=== PATIENT | female | born 1975 | race Caucasian/White ===

== ENCOUNTER → 2020-05-01 | Emergency (ER) | payer OTHER, MEDICAID ==
[~2020-05-01] VITALS: Ht 152.4 cm; Wt 70.3 kg
[~2020-05-01] MED LIST: LIDOcaine 1% W/epiNEPHrine 1:200,000 10ml vial IJ ONE; acetaminophen 325mg tablet PO ONE; iohexol 300mg/ml 100ml inj. ONE; morphine 4 MG/ML inj SYRINge IV ONE; ondansetron/PF 4mg/2ml inj IV ONE
--- NOTE | 2020-05-01 15:56 | NUR ---
Delay to CT, unable to get IV access
[2020-05-01 16:04] LABS: BASOPHILS # (AUTO) 0.1 X10'3 (0-0.2); BASOPHILS % (AUTO) 0.4 % (0-1); EOSINOPHILS # (AUTO) 0.1 X10'3 (0-0.9); EOSINOPHILS % (AUTO) 0.4 % (0-6); HEMATOCRIT 41.9 % (35.0-45.0); HEMOGLOBIN 14.4 g/dl (12.0-16.0); LYMPHOCYTES # (AUTO) 0.9 X10'3 (1.1-4.8); LYMPHOCYTES % (AUTO) 4.9 % (21-51); MEAN CORPUSCULAR HEMOGLOBIN 30.4 PG (27.0-31.0); MEAN CORPUSCULAR HGB CONC 34.2 g/dL (33.0-36.5); MEAN CORPUSCULAR VOLUME 88.9 FL (78-98); MEAN PLATELET VOLUME 8.9 FL (7.4-10.4); MONOCYTES # (AUTO) 0.8 X10'3 (0-0.9); MONOCYTES % (AUTO) 4.1 % (2-12); NEUTROPHILS # (AUTO) 16.6 X10'3 (1.8-7.7); NEUTROPHILS % (AUTO) 90.2 % (42-75); PLATELET COUNT 278 X10'3 (140-440); RED BLOOD COUNT 4.72 X10'6 (4.20-5.60); RED CELL DISTRIBUTION WIDTH 12.5 % (11.5-14.5); WHITE BLOOD COUNT 18.4 X10'3 (4.5-11.0)
[2020-05-01 16:19] LABS: ALANINE AMINOTRANSFERASE 27 U/L (12-78); ALBUMIN 4.2 G/DL (3.4-5.0); ALBUMIN/GLOBULIN RATIO 1.1 (1.1-1.5); ALKALINE PHOSPHATASE 72 IU/L (46-116); ANION GAP 9 (8-16); ASPARTATE AMINO TRANSFERASE 26 U/L (10-37); BILIRUBIN,TOTAL 0.3 MG/DL (0.1-1.0); BLOOD UREA NITROGEN 22 MG/DL (7-18); CALCIUM 9.1 MG/DL (8.5-10.1); CHLORIDE 106 MMOL/L (99-107); GLUCOSE 87 MG/DL (70-104); POTASSIUM 3.7 MMOL/L (3.5-5.1); SODIUM 142 MMOL/L (135-145); TOTAL CARBON DIOXIDE 27.3 MMOL/L (24-32); TOTAL PROTEIN 8.1 G/DL (6.4-8.2); eGFR 53 ML/MIN
[2020-05-01 16:23] LABS: TROPONIN I < 0.04 NG/ML (0.0-0.05)
--- NOTE | 2020-05-01 17:00 | NUR ---
dr candelario at bedside informing the pt about ct scan results informed that pt has pneumothorax ,need n.c 2 l of o2 to breath better ,vitals stable md aware ,md offered the stronger pain meds ,pt refused ,tylenol admin as per pt request ,informed that pt need transfer to [facility] as traum[facility] pt.
[2020-05-01 18:16] VITALS: BP 118/79
== END | disposition short-term general hospital (02) ==
LOC: ER 15:07
DX: S22.41XA Multiple fractures of ribs, right side, initial encounter for closed fracture (principal); S01.81XA Laceration without foreign body of other part of head, initial encounter; S61.212A Laceration without foreign body of right middle finger without damage to nail, initial encounter; S27.0XXA Traumatic pneumothorax, initial encounter; S90.511A Abrasion, right ankle, initial encounter; S60.511A Abrasion of right hand, initial encounter; F17.200 Nicotine dependence, unspecified, uncomplicated; Z88.2 Allergy status to sulfonamides; V89.2XXA Person injured in unspecified motor-vehicle accident, traffic, initial encounter; W22.11XA Striking against or struck by driver side automobile airbag, initial encounter; Y93.89 Activity, other specified; Y92.89 Other specified places as the place of occurrence of the external cause; Y99.8 Other external cause status
CPT/HCPCS: 12001; 12011; 36415; 70450; 71250; 72125; 73130; 74177; 80053; 84484; 85025; 85610; 93005; 96374; 96375; 99285; J2270; J2405; Q9967; 71260